=== PATIENT | male | born 1945 | race Caucasian/White ===

== ENCOUNTER 2019-11-27 12:34 | Outpatient (CLI) | payer MEDICARE, OTHER, SELFPAY | END 2019-11-27 12:35 | disposition home or self-care (01) | LOC: LAB 12:41 | PROVIDERS: Visit Provider Urology | DX: R97.20 Elevated prostate specific antigen [PSA] (principal) | CPT/HCPCS: 81001; 84153 ==

== ENCOUNTER 2019-12-20 07:32 | Outpatient (CLI) | payer MEDICARE, OTHER, SELFPAY ==
[2019-12-20] MEDS: iohexol 300 mg/mL 50 mL Btl PO (08:00)
[2019-12-20 08:17] LABS: Blood Urea Nitrogen 21 mg/dL (8-23)
[2019-12-20] MEDS: iohexol 300 mg/mL 100 mL Btl 95 ML IV (08:42)
--- NOTE | 2019-12-20 09:30 | CT_ITS ---
WS: [id number] CT ABDOMEN PELVIS TECHNIQUE: Noncontrast CT of the abdomen and contrast-enhanced CT of the abdomen and pelvis with kaye nal and sagittal reformatted images. CLINICAL INFORMATION: PROSTATE CANCER COMPARISON: CT pelvis January 19, 2018 DLP: 2422.[address] scans at [facility] use at least one of these dose optimization techniques: automat ed exposure control; mA and/or kV adjustment per patient size (includes targeted exams where dose is matched to clinical indication); or iterative reconstruction. FINDINGS: Heterogeneously enhancing enlarged prostate measuring 4.1 x 4.6 cm. Indentation on the bladder. Jaclyn l perirectal fat. Normal seminal vesicles. No pelvic sidewall lymphadenopathy. A few prominent inguin al lymph nodes right greater than left likely reactive with persistent fatty janice. Fat-containing rig ht inguinal hernia. Normal liver. Portal vein and splenic vein are normal. Normal gallbladder. Splenic granulomas. Adrena l glands are normal. Normal renal parenchymal enhancement. No hydronephrosis. Right renal cyst measur ing 1.9 CM. Slight atelectasis in the lung bases. Calcified granuloma right middle lobe. A few promin ent mesenteric lymph nodes not pathologically enlarged. Normal GE junction. Incidental fat-containing umbilical hernia. Normal sigmoid colon. Normal caliber abdominal aorta. No periaortic lymphadenopathy. CT/CT abdomen pelvis wo/w [id number] IMPRESSION: 1. Enlarged heterogeneously enhancing prostate with indentation on the bladder . 2. Normal-appearing seminal vesicles and perirectal fat. No pelvic lymphadenop athy. A few prominent inguinal lymph nodes likely reactive with preserved fatty janice. 3. No periaortic lymphadenopathy. 4. Small right renal cyst measuring 1.9 CM. 5. No hydronephrosis in either kidney. Normal renal parenchymal enhancement an d excretion. 6. Fat-containing right inguinal hernia.
--- NOTE | 2019-12-20 10:30 | NM_ITS ---
WS: [id number] Nuclear medicine whole body bone scan, 12/20/2019 Clinical Data: PROSTATE CANCER Comparison: Bone scan, 01/19/2018. CT abdomen and pelvis, 12/20/2019 Findings: After the intravenous injection of 27.4 mCi of technetium 99m HDP anterior and posterior wh ole body images were obtained. Additional lateral imaging of the cervical spine and skull was perform ed. There is slight increase in uptake at the left sacrum. However review of today's CT scan of the abdom en and pelvis did not demonstrate any bony abnormality in this region. The shoulders show mild osteoa rthritis. There is minimal left thumb osteoarthritis. No definite areas of metastatic bone disease is seen. NM/NM bone scan whole body* [id number] Impression: Negative whole body bone scan with no evidence of metastatic disease.
== END 2019-12-20 07:33 | disposition home or self-care (01) ==
LOC: CT 07:33
PROVIDERS: Visit Provider Urology
DX: C61 Malignant neoplasm of prostate (principal); N40.0 Benign prostatic hyperplasia without lower urinary tract symptoms; N28.1 Cyst of kidney, acquired; K40.90 Unilateral inguinal hernia, without obstruction or gangrene, not specified as recurrent
CPT/HCPCS: 74178; 78306; 82565; 84520; A9561

== ENCOUNTER → 2019-12-23 10:30 | Outpatient (BNVA) | payer MEDICARE, OTHER, SELFPAY | PROVIDERS: PCP Family Medicine; Visit Provider Urology | DX: C61 Malignant neoplasm of prostate (principal); R39.9 Unspecified symptoms and signs involving the genitourinary system | CPT/HCPCS: 81001 ==

== ENCOUNTER → 2021-01-11 09:04 | Outpatient (BNVA) | payer MEDICARE, OTHER, SELFPAY | PROVIDERS: PCP Family Medicine; Visit Provider Urology | DX: C61 Malignant neoplasm of prostate (principal) | CPT/HCPCS: 84153 ==

== ENCOUNTER → 2021-01-14 08:41 | Outpatient (BNVA) | payer MEDICARE, OTHER, SELFPAY | PROVIDERS: PCP Family Medicine; Visit Provider Urology | DX: C61 Malignant neoplasm of prostate (principal); N43.40 Spermatocele of epididymis, unspecified; R39.9 Unspecified symptoms and signs involving the genitourinary system; R39.198 Other difficulties with micturition | CPT/HCPCS: 81003 ==

== ENCOUNTER 2021-01-25 07:53 | Outpatient (CLI) | payer MEDICARE, OTHER, SELFPAY ==
[2021-01-25] MEDS: iohexol 300 mg/mL 100 mL Btl IV (08:43)
--- NOTE | 2021-01-25 09:30 | CT_ITS ---
WS: [id number] CT ABDOMEN PELVIS TECHNIQUE: Noncontrast CT of the abdomen and contrast-enhanced CT of the abdomen and pelvis with kaye nal and sagittal reformatted images. CLINICAL INFORMATION: PROSTATE CANCER COMPARISON: CT December 20, 2019 DLP: 4519.[address] scans at [facility] use at least one of these dose optimization techniques: automat ed exposure control; mA and/or kV adjustment per patient size (includes targeted exams where dose is matched to clinical indication); or iterative reconstruction. FINDINGS: Lobulated heterogeneous enhancing nodular prostate appears slightly larger today. Today this measures approximately 5.1 x 4.6 x 5.8 cm AP by transverse by craniocaudal. Indentation on the bladder with e vidence of bladder outlet obstruction. Normal-appearing seminal vesicles. Perirectal fat. No pelvic l ymphadenopathy. Incidental fat-containing right inguinal hernia. Normal liver. Portal vein and splenic vein are normal. Normal gallbladder. Splenic granulomas. Adrena l glands are normal. Normal renal parenchymal enhancement. No hydronephrosis. Right renal cyst measur ing 1.9 CM. Slight atelectasis in the lung bases. Calcified granuloma right middle lobe. Normal GE ju nction. Incidental fat-containing umbilical hernia. Normal sigmoid colon. Normal caliber abdominal ao rta. No periaortic lymphadenopathy. CT/CT abdomen pelvis wo/w [id number] IMPRESSION: 1. Heterogeneous enhancing nodular prostate appears slightly increased in size from previous today measuring 5.1x 4.6 x 5.8 cm AP by transverse by craniocaud al 2. Indentation on the bladder with evidence of bladder outlet insertion. 3. Normal seminal vesicles and perirectal fat. A few prominent inguinal lymph nodes not pathologically enlarged. 4. No abdominal lymphadenopathy. 5. No other significant changes from previous.
--- NOTE | 2021-01-25 10:00 | NM_ITS ---
WS: [id number] NUCLEAR MEDICINE BONE SCAN Radiopharmaceutical: 24.9 Tc-99m MDP mCi IV Injection site: antecubital Postinjection imaging delay: 1 hr CLINICAL INFORMATION: PROSTATE CANCER COMPARISON: December 20, 2019 FINDINGS: Bone lesions: A few small foci of uptake within the cervicothoracic junction and lumbar spine nonspec ific No other suspicious lesions. The L1 lesion in particular corresponds to a new bony lesion on the concurrent CT abdomen pelvis steffen uring 1.3 cm suspicious for metastatic disease. Soft tissue contours: Normal. Kidneys: Delayed excretion right renal collecting system. Other findings: Degenerative type uptake both AC joints. NM/NM bone scan whole body* [id number] IMPRESSION: 1. A few small foci of uptake within the cervical thoracic junction and lumbar spine are nonspecific and new from previous. 2. The L1 lesion in particular corresponds to a new bony lesion on the concurr ent CT abdomen pelvis measuring 1.3 cm suspicious for metastatic disease. This can be further evaluated MRI.
== END 2021-01-25 07:54 | disposition home or self-care (01) ==
LOC: RAD 07:55
PROVIDERS: PCP Family Medicine; Visit Provider Urology
DX: C61 Malignant neoplasm of prostate (principal)
CPT/HCPCS: 74178; 78306; A9561

== ENCOUNTER 2021-01-28 11:39 | Outpatient (CLI) | payer MEDICARE, OTHER, SELFPAY ==
--- NOTE | 2021-01-28 17:21 | ONC CON_ITS ---
Dr. Luis New Patient Note Patient: Malvin Sood Unit #: [id number]: 1945 Dicatated By: Jarad Luis M.D.Date of Visit: Jan 28, 2021 Onc MED New Patient/Consult Referring Physician: Dr. Reggie Nelson M.D. History of Present Illness: Mr. Malvin Sood, is a 75-year-old gentleman with a history of prostate cancer diagnosed on January 03, 2018, at that time biopsy shows Flor[place] score 4+3 and 4+4 with a large volume and periprostatic fat invasion seen., no seminal vesicle invasion was identified. But PSA was 288, At that time in December and January 2018 he had bone scan done each month both were negative and also had CT scan of abdomen which showed no evidence of pelvic lymphadenopathy, as per patient he was started on Lupron, received 1 dose only after that he did not like the side effects especially with loss of libido/sex drive and decided not to proceed with further treatment rather holistic therapy with Macanese herbs. At that time, after 1 dose of Lupron his PSA went down to 70s. As per medical record in September 2019 patient was seen by Dr. Nelson who prescribed him tamsulosin 0.4 mg at night for bladder outlet obstructive symptoms. And then follow-up visit in November 2019 his PSA was [address] Nelson recommended CT scan and bone scan and recommended consultation with oncology so CT scan of abdomen pelvis done on December 20, 2019 showed no pelvic lymphadenopathy, no hydronephrosis and bone scan was also negative for metastatic disease during that time he was also diagnosed with spermatocele on the right side which was confirmed with ultrasound and physical exam and decided to monitor as patient was not symptomatic Patient was again evaluated by urology on January 11, 2021 and his repeat PSA was 302.2 and CHAPITO exam shows grossly abnormal, rockhard, lateral wall to wall prostate gland and patient was complaining of increasing difficulty voiding, urgency and frequency and said tamsulosin did not make much difference at that time CT scan of abdomen pelvis and bone scan was ordered which was done on January 25, [address] scan showed heterogeneous enhancing nodular prostate appears slightly increased in size from previous measuring 5.1 x 4.6 x 5.8 cm. Indentation on the bladder with evidence of bladder outlet insertion. Normal seminal vesicle and perirectal fat. A prominent inguinal lymph node not pathologically enlarged. No abdominal lymphadenopathy and bone scan shows a few small foci of uptake within the cervical thoracic junction and lumbar spine are nonspecific but L1 lesion in the particular correspond to both new bony lesion on the CT scan of abdomen measuring 1.3 cm suspicious for metastatic disease. Patient denies any back pain, denies any hematuria or dysuria, denies any jaundice, denies any abdominal pain denies any fever or chills. Patient is very active physically walks about 5 miles every day and 1 mile with 50 pound weight in his hands. And dance 10 hours a week Past Medical History: Mr. Sood's medical history consists of LUTS and spermatocele. Past Surgical History: Mr. Sood's surgical/procedural history consists of appendectomy and hernia repair. Medications: There is no information available for Current Medications - Patient. Allergies: Atorvastatin Calcium Social History: Mr. Sood is . Mr. Sood has never smoked. He has no history of drinking. Mr. Sood reports the following support systems: lives with spouse, significant other, family, or friends. Family History: There is no documented family history. Review Of Symptoms: Review of Systems is not available for this patient. Vital Signs: Performed on Jan 28, 2021 13:43: 0, 0, 0.00, 0.00 sq.m, 96 %, 60 /min, 18 /min, 158/82 mm(hg) (HIGH), 98.4 F, and 186.6 lbs (HIGH). Performance Status: 0 - Fully active, able to carry on all predisease activities without restrictions. (ECOG) Physical Examination: ENMT - No mouth sores, no thrush, no jaundice, Respiratory - Lungs are clear to auscultation, Cardiovascular - Regular rate and rhythm of heart, Abdomen - , Soft, bowel sounds present, Extremities - No visible edema. Lab/Imaging: Most recent lab results are not available for this patient. Impression: Prostate cancer, diagnosed on January 03, 2018, pathology showed Benoit score 4+3 and 4+4 with a large volume and periprostatic fat invasion seen. No seminal vesicle invasion was identified. His PSA was 288 at the time of diagnosis. His bone scan done in December and January 2018 showed no evidence of metastatic disease and CT scan of abdomen pelvis shows no cervical lymphadenopathy. Patient was started on Lupron, after 1 dose patient declined further treatment because of related side effect e.g. loss of libido and sex drive.So patient decided to proceed with holistic medicine/Macanese herbs Follow-up PSA done on November 27, 2019 was 213 with a grossly abnormal CHAPITO, CT scan of abdomen pelvis done on December 20, 2019 showed no pelvic lymphadenopathy or hydronephrosis. Bone scan done on December 20, 2019 shows no evidence of metastatic disease. Follow-up PSA done on January 11, 2021 showed PSA [address] scan of abdomen pelvis done on January 26, 2020 shows no lymphadenopathy but L1 lesion, which was confirmed by bone scan done on January 25, 2021 with a few small foci of uptake within the cervical thoracic junction and lumbar spine are nonspecific but new from previous. Right spermatocele, with mild discomfort now being monitored. Plan: Discussed with patient regarding his disease status, CT scan of abdomen pelvis and bone scan Done on January 25, 2021 which showed abnormal prostate gland along with L1 lesion, case was discussed with radiation oncology too , at this time, it was decided to proceed with L1 biopsy if it shows no evidence of metastatic disease then consider treatment with ADT concurrent with radiation therapy, being in very high risk category, consider docetaxel 75 mg/m??? every 3 weeks x 6 along with prednisone 10 mg and long-term adjuvant ADT for 2 to 3 years On the other hand if L1 biopsy confirms metastatic prostate cancer, then we would recommend ADT and docetaxel 75 mg/m??? 3weekly x6 followed by radiation therapy followed by long-term adjuvant therapy with ADT And biphosphonate or Other option would be ADT with apalutamide or enzalutamide or docetaxel alone. Or ADT alone. At this point , patient and his wants to proceed with CT-guided L1 biopsy , and then decide which treatment option they will consider. We will schedule him for CT-guided biopsy of L1 vertebra and then he will return to clinic 1 week after biopsy with CBC CMP PSA and testosterone level. Signed By: Jarad Luis M.D. <<Signature on File>>
== END 2021-01-28 11:40 | disposition home or self-care (01) ==
LOC: ONCMED 11:45
PROVIDERS: PCP Family Medicine; Visit Provider Internal Medicine Hematology & Oncology
DX: C61 Malignant neoplasm of prostate (principal); R93.7 Abnormal findings on diagnostic imaging of other parts of musculoskeletal system; M89.9 Disorder of bone, unspecified; N43.40 Spermatocele of epididymis, unspecified
CPT/HCPCS: 99205